=== PATIENT | female | born 2000 | race Caucasian/White ===

== ENCOUNTER 2019-05-05 12:56 | Outpatient (CLI) | payer OTHER ==
--- NOTE | 2019-05-05 13:57 | RAD ---
2 VIEW CHEST: Date: 05/05/19 INDICATION: Hilar adenopathy. No prior comparison imaging. FINDINGS: There is slight asymmetric prominence of the left hilum. Cardiac silhouette is normal in size. No foc al consolidation or effusion. Osseous structures intact. IMPRESSION: Slight asymmetric prominence to the left hilum. This could relate to vasculature, although the possib ility of underlying adenopathy, given clinical concern, cannot be excluded on the basis of this exam. As necessary, continued imaging follow-up may be obtained for further evaluation. POS: Jonna
== END 2019-05-05 12:57 | disposition home or self-care (01) ==
LOC: SCSRAD 12:56
DX: R59.0 Localized enlarged lymph nodes (principal)
CPT/HCPCS: 71046

== ENCOUNTER 2019-07-06 13:07 | Outpatient (CLI) | payer OTHER ==
--- NOTE | 2019-07-06 14:38 | MRI ---
BRAIN MRI WITH AND WITHOUT CONTRAST: HISTORY: Optic neuritis. Right optic nerve swelling, x1 month. COMPARISON: None. FINDINGS: Brain MRI: Gradient echo sequence: No hemorrhage. Calvarium: Appropriate T1 marrow signal intensity. Midline brain parenchyma: Unremarkable. Cerebrum:No parenchymal mass, mass effect or midline shift. Brain volume is age-appropriate. Cortical harrington-white matter differentiation is preserved. Ventricles: No evidence of hydrocephalus. Sinuses and mastoid air cells: Adequate aeration. Diffusion: Central arterial flow is maintained. Absent restricted diffusion. Postcontrast images: No pathologic enhancement of the brain parenchyma. Orbit MRI: Symmetric signal intensity of the ocular rectus muscles. Both globes are intact. Retrobulbar fat is p reserved. Symmetric signal intensity of the lacrimal glands. The optic chiasm, prechiasmatic optic nerves, intracranial optic nerve, intracanalicular and intraorb ital optic nerves have symmetric signal intensity. No abnormal enhancement. No T2 hyperintensity. No MR evidence of optic nerve edema. IMPRESSION: 1. Unremarkable pre and postcontrast brain MRI. 2. Unremarkable orbit MRI. No abnormal signal intensity in the right optic nerve. Transcribed Date/Time: 07/06/2019 2:42 PM
== END 2019-07-06 13:08 | disposition home or self-care (01) ==
LOC: SCSMRI 13:07
PROVIDERS: ATTEND Ophthalmology Retina Specialist
DX: H46.9 Unspecified optic neuritis (principal)
CPT/HCPCS: 70553